=== PATIENT | male | born 1975 | race Two or more races ===

== ENCOUNTER 2017-04-01 20:05 | Emergency (ER) | payer MEDICAID, OTHER ==
[~2017-04-01] VITALS: Ht 182.9 cm; Wt 117.2 kg
[2017-04-01] MEDS ORDERED: LIDOCAINE 1%, 20ML INFIL ONE (20:30)
[2017-04-01] MEDS ORDERED: BACITRACIN ZINC OINT 500U/GM, 0.9 GM ONE (21:21)
[2017-04-01] MEDS ORDERED: LIDOCAINE 1%, 20ML ONE (21:41)
[2017-04-01 22:06] VITALS: BP 143/104
== END 2017-04-01 22:49 | disposition home or self-care (01) ==
LOC: ED 22:33
DX: L60.0 Ingrowing nail (principal); I10 Essential (primary) hypertension; E11.9 Type 2 diabetes mellitus without complications
CPT/HCPCS: 99283

== ENCOUNTER 2017-06-12 20:47 | Emergency (ER) | payer OTHER ==
[~2017-06-12] VITALS: Ht 182.9 cm; Wt 111.6 kg
[2017-06-12 20:53] VITALS: BP 164/107
[2017-06-12] MEDS ORDERED: METF500T4 PO (21:04)
[2017-06-12] MEDS ORDERED: DICL50TA2 PO (21:04)
[2017-06-12] MEDS ORDERED: BLOOD PRESSURE MED (21:04)
[2017-06-12] MEDS ORDERED: ACETAMINOPHEN 500 MG TABLET PO ONE (22:30)
== END 2017-06-13 00:17 | disposition home or self-care (01) ==
LOC: ED 22:29
DX: B34.9 Viral infection, unspecified (principal); I10 Essential (primary) hypertension; E11.9 Type 2 diabetes mellitus without complications; Z90.49 Acquired absence of other specified parts of digestive tract; Z87.891 Personal history of nicotine dependence
CPT/HCPCS: 71046; 99284